=== PATIENT | female | born 1985 | race African-American/Black ===

== ENCOUNTER 2018-01-14 23:29 | Emergency (ER) | payer OTHER | END 2018-01-15 01:20 | disposition home or self-care (01) | LOC: FTE 23:29 | DX: G43.109 Migraine with aura, not intractable, without status migrainosus (principal); F41.9 Anxiety disorder, unspecified; R40.2412 Glasgow coma scale score 13-15, at arrival to emergency department | CPT/HCPCS: 99282; Z7502 ==